=== PATIENT | female | born 1980 | race Two or more races ===

== ENCOUNTER 2018-01-29 13:33 | Inpatient (IN) | payer OTHER ==
[~2018-01-29] VITALS: Ht 157.5 cm; Wt 91.2 kg
== END 2018-02-01 16:09 | disposition home or self-care (01) | DRG 833 ==
LOC: OB/GYN 13:33
PROC: 4A1HXCZ Monitoring of Products of Conception, Cardiac Rate, External Approach (ICD-10-PCS; principal; 2018-01-30)
DX: O24.414 Gestational diabetes mellitus in pregnancy, insulin controlled (principal); Z34.82 Encounter for supervision of other normal pregnancy, second trimester

== ENCOUNTER 2018-06-04 12:03 | Inpatient (IN) | payer OTHER ==
[~2018-06-04] VITALS: Ht 157.5 cm; Wt 3.6 kg
[2018-06-04] MEDS ORDERED: [UNRECOGNIZED DRUG - OTHER] SUBCUTANEO ×2 (13:14→13:15)
[2018-06-04] MEDS ORDERED: [UNRECOGNIZED DRUG - OTHER] SUBCUTANEO ×2 (13:16)
[2018-06-04] MEDS ORDERED: PRENATAL VITAM1 EAC2 PO (13:17)
[2018-06-04] MEDS ORDERED: ASPIR 8181 MG PO (13:18)
== END 2018-06-07 13:36 | DRG 783 ==
LOC: OB/GYN 12:03 → LDR 12:03 → OB/GYN 14:38
PROVIDERS: ADMIT Obstetrics & Gynecology
PROC: 4A1HXCZ Monitoring of Products of Conception, Cardiac Rate, External Approach (ICD-10-PCS; 2018-06-04)
PROC: 4A033R1 Measurement of Arterial Saturation, Peripheral, Percutaneous Approach (ICD-10-PCS; 2018-06-04)
PROC: 0UB70ZZ Excision of Bilateral Fallopian Tubes, Open Approach (ICD-10-PCS; 2018-06-04)
PROC: 10D00Z1 Extraction of Products of Conception, Low, Open Approach (ICD-10-PCS; principal; 2018-06-04 14:30)
DX: O36.63X0 Maternal care for excessive fetal growth, third trimester, not applicable or unspecified (principal); O60.14X0 Preterm labor third trimester with preterm delivery third trimester, not applicable or unspecified; O34.211 Maternal care for low transverse scar from previous cesarean delivery; O75.82 Onset (spontaneous) of labor after 37 completed weeks of gestation but before 39 completed weeks gestation, with delivery by (planned) cesarean section; O24.414 Gestational diabetes mellitus in pregnancy, insulin controlled; Z3A.36 36 weeks gestation of pregnancy; Z37.0 Single live birth; Z30.2 Encounter for sterilization

== ENCOUNTER 2019-07-01 04:45 | Day surgery (SDC) | payer OTHER ==
[~2019-07-01 04:45] MED LIST: ASPIR 8181 MG PO; METFORMIN HCL500 MG; PRENATAL VITAM1 EAC2 PO; [UNRECOGNIZED DRUG - OTHER] SUBCUTANEO; [UNRECOGNIZED DRUG - OTHER] SUBCUTANEO
== END 2019-07-01 12:00 | disposition home or self-care (01) ==
LOC: CIR.AMB 04:45
DX: K80.10 Calculus of gallbladder with chronic cholecystitis without obstruction (principal)